=== PATIENT | male | born 1990 | race Caucasian/White ===

== ENCOUNTER 2019-09-18 22:13 | Emergency (ER) | payer MEDICAID ==
[~2019-09-18] VITALS: Ht 162.6 cm; Wt 64.0 kg
[2019-09-18 22:26] VITALS: BP 117/80
--- NOTE | 2019-09-18 22:32 | NUR ---
PT TAKEN TO BED 4
--- NOTE | 2019-09-18 22:53 | NUR ---
Dr. Schafer examining patient.
--- NOTE | 2019-09-18 22:56 | NUR ---
BIB SELF FOR CELLULITIS TO RIGHT SIDE OF JAW PT STATES HE HAS REDNESS W/ PUS. PT STATES HE IS HEROIN USER LAST USE YESTERDAY. PATIENT STATES THAT 3 DAYS AGO HE HAD THE SWELLING ON HIS RIGHT CHIN AND STARTED TO POP HIS JAW, AND "YELLOW PUS CAME OUT". MULTIPLE SCABBED PIMPLE LIKE SPOTS NOTED UNDER THE CHIN AND SIDE OF FACE, FOREHEAD, AND CHEST. PAIN IS A 3/10 ACUTE PAIN. ERMD MADE AWARE OF STATUS. SIDE RAILSX1. PMH HEP. C RX:DENIES ALLERGIES:PCN
--- NOTE | 2019-09-18 23:08 | NUR ---
PATIENT QUIETLY SITTING IN BED; NO DISTRESS NOTED. WILL CONTINUE TO MONITOR.
--- NOTE | 2019-09-18 23:29 | NUR ---
Aide ruiz in ED - 09/18/19 at 2330 by MIRACLE ER MD AT BEDSIDE EVALUATING PATIENT.
[2019-09-18] MEDS ORDERED: VANCOMYCIN 1,000 MG in DEXTROSE 5% 250 ML IV ONE (23:35)
[2019-09-18] MEDS ORDERED: KETOROLAC 30 MG/ML VIAL IVP ONE (23:35)
[2019-09-18] MEDS ORDERED: VANCOMYCIN 1,000 MG VIAL ONE (23:41)
[2019-09-19 01:05] VITALS: BP 117/80
--- NOTE | 2019-09-19 01:05 | NUR ---
Patient discharged with v/s stable. Written and verbal after care instructions given and explained. Patient alert, oriented and verbalized understanding of instructions. Ambulatory with steady gait. All questions addressed prior to discharge. ID band removed. Patient advised to follow up with PMD. Rx of BACTRIM; MUPIROCIN given. Patient educated on indication of medication including possible reaction and side effects. Opportunity to ask questions provided and answered. DISCHARGED BY DR. PALOMARES.
== END 2019-09-19 01:05 | disposition home or self-care (01) ==
LOC: MED 22:13
DX: B95.62 Methicillin resistant Staphylococcus aureus infection as the cause of diseases classified elsewhere (principal); L03.211 Cellulitis of face; J45.909 Unspecified asthma, uncomplicated; Z88.0 Allergy status to penicillin; Z86.19 Personal history of other infectious and parasitic diseases
CPT/HCPCS: 36415; 87040; 96365; 96375; 99283; J1885; J3370; J7060

== ENCOUNTER 2019-09-30 08:37 | Emergency (ER) | payer MEDICAID ==
[~2019-09-30] VITALS: Ht 162.6 cm; Wt 65.8 kg
[2019-09-30 08:42] VITALS: BP 153/104
[2019-09-30] MEDS ORDERED: SULFAMETH/TRIMETH DS 800/160MG 1 TAB PO ONE (09:25)
[2019-09-30 09:49] VITALS: BP 112/76
== END 2019-09-30 09:46 | disposition home or self-care (01) ==
LOC: MED 08:37
DX: L03.011 Cellulitis of right finger (principal); J45.909 Unspecified asthma, uncomplicated; F17.210 Nicotine dependence, cigarettes, uncomplicated; Z76.0 Encounter for issue of repeat prescription; Z88.0 Allergy status to penicillin; Z71.6 Tobacco abuse counseling
CPT/HCPCS: 99283

== ENCOUNTER 2020-03-10 02:30 | Emergency (ER) | payer MEDICAID, OTHER ==
[~2020-03-10] VITALS: Ht 162.6 cm; Wt 59.0 kg
--- NOTE | 2020-03-10 02:30 | NUR ---
MARJORIE LEUNG ALS TO ER BED 05
--- NOTE | 2020-03-10 02:35 | NUR ---
PT 29 Y/O MALE BIBA FOR C/O OD ON F[place] X 30 MIN AGO. PT AAOX4. PT ON MONITOR. RESPIRATIONS ARE EVEN AND UNLABORED. PT SKIN IS WARM AND DIAPHORETIC. PT STATES,"I FEEL HOT." CURRENT TEMP- 98.6. PT GIVEN 4MG OF NARCAN PRIOR TO ARRIVAL. PT CURRENTLY ON MONITOR. DENIES PAIN. DENIES N/V/D. PT NEGATIVE COVID SCREEN. PT WEARING MASK. BED LOCKED AND IN LOWEST POSITION. MEDHX: HEP C ALLERGIES: NKA
[2020-03-10 02:40] VITALS: BP 135/94
--- NOTE | 2020-03-10 04:01 | NUR ---
PT RESTING IN BED EYES CLOSED. PT RESPONSIVE TO VERBAL STIMULI. PT ON MONITOR. VSS.
--- NOTE | 2020-03-10 04:30 | NUR ---
MEDICATION NOT AVAILABLE AT THIS TIME. WILL CONTINUE TO FOLLOW UP.
--- NOTE | 2020-03-10 05:16 | NUR ---
Aide ruiz in ED - 03/10/20 at 0604 by [email or web address] PT RESTING IN BED WITH EYES CLOSED. PT RESPONSIVE TO VERBAL STIMULI. PT DENIES PAIN. PT ON MONITOR. VSS.
--- NOTE | 2020-03-10 05:16 | NUR ---
PT RESTING IN BED WITH EYES CLOSED. PT RESPONSIVE TO VERBAL STIMULI. PT DENIES PAIN. PT ON MONITOR. VSS.
--- NOTE | 2020-03-10 05:45 | NUR ---
Aide ruiz in [facility] - 03/10/20 at 0605 by [email or web address] [employer]CH[employer] STATED MEDICATION IS STILL NOT AVAILABLE AT THIS TIME.
--- NOTE | 2020-03-10 07:02 | NUR ---
PT RESPONDS TO VERBAL STIMULI. PT RESPIRATIONS ARE EVEN AND UNLABORED. PT ON MONITOR. VSS.
[2020-03-10 07:37] VITALS: BP 104/65
--- NOTE | 2020-03-10 07:39 | NUR ---
Patient discharged with v/s stable. Written and verbal after care instructions given and explained. Patient alert, oriented and verbalized understanding of instructions. Ambulatory with steady gait. All questions addressed prior to discharge. ID band removed. Patient advised to follow up with PMD. Rx NARCAN of given. Patient educated on indication of medication including possible reaction and side effects. Opportunity to ask questions provided and answered.
== END 2020-03-10 07:39 | disposition home or self-care (01) ==
LOC: MED 02:30
DX: T40.2X1A Poisoning by other opioids, accidental (unintentional), initial encounter (principal); J45.909 Unspecified asthma, uncomplicated; Z88.0 Allergy status to penicillin; Y92.89 Other specified places as the place of occurrence of the external cause
CPT/HCPCS: 99285